=== PATIENT | male | born 1985 | race Caucasian/White ===

== ENCOUNTER 2018-04-20 18:16 | Emergency (ER) | payer OTHER ==
[~2018-04-20] VITALS: Ht 175.3 cm; Wt 87.1 kg
[2018-04-20 18:23] VITALS: BP 107/69
[2018-04-20] MEDS ORDERED: CLONIDINE HCL0.1 MG PO (18:24)
[2018-04-20] MEDS ORDERED: COREG3.125 MG ORAL (18:24)
[2018-04-20] MEDS ORDERED: FUROSEMIDE20 M1 ORAL (18:24)
--- NOTE | 2018-04-20 18:35 | Emergency Room Report ---
History of Present Illness General Chief Complaint: Pain Source: Patient Present Illness HPI Patient is a 33-year-old male presented after increased left lower extremity numbness. This is been present for approximately 3 days. Patient reports having prior history of congestive heart failure. He reports the has heart failure secondary to alcohol and drug abuse. Patient states his last echo he had an ejection fraction of approximate 15%. Patient reports being actively drinking at the time of that echocardiogram. He reports having increased numbness to his left lower extremity. He denies any increase in swelling. He reports taking multiple medications for his heart. Allergies: Coded Allergies: No Known Allergies (Unverified , 04/20/18) Patient History Past Medical History: see triage record Reviewed Nursing Documentation: PMH: Agreed; PSxH: Agreed Nursing Documentation-PMH Past Medical History: No Stated History Hx Hypertension: Yes Hx Asthma: Yes Review of Systems All Other Systems: negative except mentioned in HPI Physical Exam Vital Signs Date Time Temp Pulse Resp B/P (MAP) Pulse Ox O2 Delivery O2 Flow Rate FiO2 04/20/18 18:20 97.9 74 18 107/69 98 Room Air Sp02 EP Interpretation: reviewed, normal General Appearance: normal inspection, well appearing, no apparent distress, alert, GCS 15 Head: atraumatic ENT: normal ENT inspection, hearing grossly normal, normal voice Neck: normal inspection, full range of motion, supple, no bony tend Respiratory: normal inspection, lungs clear, normal breath sounds, no respiratory distress, no retraction, no wheezing Cardiovascular #1: regular rate, rhythm, no edema Gastrointestinal: normal inspection, normal bowel sounds, non tender, soft, no guarding, no hernia Genitourinary: no CVA tenderness Musculoskeletal: normal inspection, back normal, normal range of motion Neurologic: normal inspection, alert, oriented x3, responsive, sustainable development policy analyst III-XII nml as tested, motor strength/tone normal, DTRs symmetric, speech normal, sensory deficit, oriented Psychiatric: normal inspection, judgement/insight normal, mood/affect normal Skin: normal inspection, normal color, no rash Medical Decision Making Diagnostic Impression: Primary Impression: Neuropathy ER Course Patient presented for left lower extremity pain. Differential diagnosis included but was not limited to fracture, contusion, vascular insufficiency, aortic aneurysm, cellulitis.CT of the head read by radiology showed no acute intracranial hemorrhage or definite CVA. Patient was noted to have some what appeared to be artifact per radiology reading. Laboratory testing was unremarkable except for some slight elevation of his liver function test consistent with his prior history of hepatitis. Patient was noted to have normal oxygen saturation. He was noted to have multiple patches of areas of pain. He was advised to follow-up with neurology and advised that he may need MRI and to return if he began having worsening symptoms weakness fever or other concerns. Labs Test 04/20/18 19:00 White Blood Count 7.8 K/UL (4.8-10.8) Red Blood Count 4.91 M/UL (4.70-6.10) Hemoglobin 15.2 G/DL (14.2-18.0) Hematocrit 44.7 % (42.0-52.0) Mean Corpuscular Volume 91 FL (80-99) Mean Corpuscular Hemoglobin 31.0 PG (27.0-31.0) Mean Corpuscular Hemoglobin Concent 34.0 G/DL (32.0-36.0) Red Cell Distribution Width 11.3 % (11.6-14.8) Platelet Count 204 K/UL (150-450) Mean Platelet Volume 7.7 FL (6.5-10.1) Neutrophils (%) (Auto) 47.5 % (45.0-75.0) Lymphocytes (%) (Auto) 35.9 % (20.0-45.0) Monocytes (%) (Auto) 10.3 % (1.0-10.0) Eosinophils (%) (Auto) 4.7 % (0.0-3.0) Basophils (%) (Auto) 1.6 % (0.0-2.0) Sodium Level 137 MMOL/L (136-145) Potassium Level 4.4 MMOL/L (3.5-5.1) Chloride Level 101 MMOL/L (98-107) Carbon Dioxide Level 33 MMOL/L (21-32) Anion Gap 3 mmol/L (5-15) Blood Urea Nitrogen 14 mg/dL (7-18) Creatinine 1.1 MG/DL (0.55-1.30) Estimat Glomerular Filtration Rate > 60 mL/min (>60) Glucose Level 92 MG/DL (74-106) Calcium Level 9.2 MG/DL (8.5-10.1) Total Bilirubin 0.4 MG/DL (0.2-1.0) Aspartate Amino Transf (AST/SGOT) 49 U/L (15-37) Alanine Aminotransferase (ALT/SGPT) 97 U/L (12-78) Alkaline Phosphatase 87 U/L (46-116) Troponin I 0.000 ng/mL (0.000-0.056) Total Protein 7.6 G/DL (6.4-8.2) Albumin 3.6 G/DL (3.4-5.0) Globulin 4.0 g/dL Albumin/Globulin Ratio 0.9 (1.0-2.7) EKG Diagnostic Results Rate: normal Rhythm: NSR ST Segments: no acute changes Last Vital Signs Date Time Temp Pulse Resp B/P (MAP) Pulse Ox O2 Delivery O2 Flow Rate FiO2 04/20/18 18:20 97.9 74 18 107/69 98 Room Air Status: unchanged Disposition: HOME, SELF-CARE Edy Lord MD Apr 20, 2018 18:35
[2018-04-20 19:29] LABS: BASOPHILS % (AUTO) 1.6 % (0.0-2.0); EOSINOPHILS % (AUTO) 4.7 % (0.0-3.0); HEMATOCRIT 44.7 % (42.0-52.0); HEMOGLOBIN 15.2 G/DL (14.2-18.0); LYMPHOCYTES % (AUTO) 35.9 % (20.0-45.0); MEAN CORPUSCULAR VOLUME 91 FL (80-99); MONOCYTES % (AUTO) 10.3 % (1.0-10.0); NEUTROPHILS % (AUTO) 47.5 % (45.0-75.0); PLATELET COUNT 204 K/UL (150-450); RED BLOOD COUNT 4.91 M/UL (4.70-6.10); RED CELL DISTRIBUTION WIDTH 11.3 % (11.6-14.8); WHITE BLOOD COUNT 7.8 K/UL (4.8-10.8)
[2018-04-20 19:35] LABS: ANION GAP 3 mmol/L (5-15); BLOOD UREA NITROGEN 14 mg/dL (7-18); CALCIUM 9.2 MG/DL (8.5-10.1); CARBON DIOXIDE 33 MMOL/L (21-32); CHLORIDE 101 MMOL/L (98-107); CREATININE 1.1 MG/DL (0.55-1.30); POTASSIUM 4.4 MMOL/L (3.5-5.1); SODIUM 137 MMOL/L (136-145)
[2018-04-20 19:42] LABS: ALANINE AMINOTRANSFERASE 97 U/L (12-78); ALBUMIN 3.6 G/DL (3.4-5.0); ALBUMIN/GLOBULIN RATIO 0.9 (1.0-2.7); ALKALINE PHOSPHATASE 87 U/L (46-116); ASPARTATE AMINO TRANSFERASE 49 U/L (15-37); BILIRUBIN,TOTAL 0.4 MG/DL (0.2-1.0)
[2018-04-20 20:30] VITALS: BP 104/61
--- NOTE | 2018-04-21 10:53 | Diagnostic Imaging Report ---
Indication: Headache Technique: Contiguous 5 mm thick transaxial imaging of the head obtained in a Siemens Sensation [address] scanner. Soft tissue and bone windows generated. Automatic Exposure Control was utilized. Total Dose length Product (DLP): 1382.[address] Dose Index Volume (CTDIvol): 70.38 mGy Comparison: none Findings: The size and configuration of the cortical sulci, basal cisterns, and ventricles are within normal limits for age. There is no mass effect, midline shift, or edema identified. There is no evidence of acute hemorrhage or abnormal intra-axial or extra-axial fluid collections. The bones and soft tissues are unremarkable. Impression: No mass effect, edema or acute bleed. [facility] has communicated the preliminary results to the Emergency Department. Their findings are largely concordant with this report. The CT scanner at [facility] is accredited by the [employer] and the scans are performed using dose optimization techniques as appropriate to a performed exam including Automatic Exposure control.
== END 2018-04-20 20:30 | disposition home or self-care (01) ==
LOC: EMR 19:00
DX: G62.9 Polyneuropathy, unspecified (principal); J45.909 Unspecified asthma, uncomplicated; I10 Essential (primary) hypertension
CPT/HCPCS: 36415; 70450; 80053; 84484; 85025; 93005; 99284

== ENCOUNTER 2018-04-29 13:22 | Emergency (ER) | payer MEDICAID, OTHER ==
[~2018-04-29] VITALS: Ht 175.3 cm; Wt 90.7 kg
[~2018-04-29 13:22] MED LIST: CLONIDINE HCL0.1 MG PO; COREG3.125 MG ORAL; FUROSEMIDE20 M1 ORAL
[2018-04-29] MEDS ORDERED: SUBOXONE 8 MG-1 EACH SL (13:33)
[2018-04-29] MEDS ORDERED: POTASSIUM99 M3 PO (13:33)
[2018-04-29] MEDS ORDERED: ENTRESTO 24 MG1 EACH PO (13:33)
[2018-04-29] MEDS ORDERED: FUROSEMIDE20 M1 ORAL (13:33)
--- NOTE | 2018-04-29 13:54 | Emergency Room Report ---
History of Present Illness General Chief Complaint: Substance Abuse Source: Patient (Reggie Perdomo) Present Illness HPI 33 yo male patient presents the ER complaining of vomiting and diarrhea status post a few hours following receiving a naltrexone implant earlier today. Patient reports that he received a implant for opioid addiction. Reports has been clean for over 1 month. Reports vomiting and diarrhea, denies blood in vomit or stool. Denies recent travel. Patient being seen in the ER with contact with similar symptoms who also received an implant earlier today. Denies fever, chest pain, shortness of breath. Vitals stable. Denies recent drug use. (Reggie Perdomo) Allergies: Coded Allergies: No Known Allergies (Unverified , 04/29/18) Patient History Past Medical History: see triage record Reviewed Nursing Documentation: PMH: Agreed; PSxH: Agreed (Reggie Perdomo) Nursing Documentation-PMH Past Medical History: No History, Except For Hx Cardiac Problems: Yes - CHF Hx Hypertension: Yes Hx Asthma: Yes (Reggie Perdomo) Review of Systems All Other Systems: negative except mentioned in HPI (Reggie Perdomo) Physical Exam Vital Signs Date Time Temp Pulse Resp B/P (MAP) Pulse Ox O2 Delivery O2 Flow Rate FiO2 04/29/18 13:29 97.5 88 18 129/84 98 Room Air Sp02 EP Interpretation: reviewed, normal General Appearance: well appearing, no apparent distress, alert, GCS 15, non- toxic Head: normocephalic, atraumatic Eyes: bilateral eye normal inspection, bilateral eye PERRL ENT: hearing grossly normal, normal pharynx, no angioedema, normal voice, uvula midline, moist mucus membranes Neck: full range of motion Respiratory: lungs clear, normal breath sounds, no rhonchi, no respiratory distress, no accessory muscle use, no wheezing, speaking full sentences Cardiovascular #1: regular rate, rhythm, no edema Gastrointestinal: non tender, soft, no mass, non-distended, no guarding, no rebound, other - small <1cm on left lateral abdomen , no surrounding erythema or edema Musculoskeletal: back normal, digits/nails normal, gait/station normal, normal range of motion, non-tender Neurologic: alert, oriented x3, responsive, motor strength/tone normal, sensory intact Psychiatric: mood/affect normal (Reggie Perdomo) Medical Decision Making PA Attestation Dr. Dumont is my supervising Physician whom patient management has been discussed with. (Reggie Perdomo) Medicare Attestation Please note that the patient was also seen by myself Patient remains hemodynamically stable I do agree with the exam and workup and intervention Patient was observed checking into the emergency room, appropriate no signs of any nausea or vomiting, patient is appropriate for outpatient care (Sj Dumont DO) Diagnostic Impression: Primary Impression: Nausea & vomiting ER Course Pt. presents to the ED c/o vomiting and diarrhea s/p naltrexone implant earlier today. Ddx considered but are not limited to gastritis, enteritis, withdrawal, opioid dependence. Vital signs: are WNL, pt. is afebrile ER COURSE: Provided with Zofran. Patient not observed to vomit while in the ER. Physical exam benign, no abdominal TTP. Patient seen and evaluated by Dr. Dumont, do not believe patient requires further treatment or workup at this time. Will provide Rx for Zofran and recommend patient followup with clinic where procedure was performed. Vtials stable, observed walking around without difficulty. Informed by nurse patient requesting pain medication following discharge. DISCHARGE: At this time pt is stable for d/c to home. Patient is resting comfortably, in no acute distress, nontoxic appearing, talking without difficulty. Patient to take medications as instructed Will provide with patient care instructions and any necessary prescriptions. Care plan and follow-up instructions provided. Patient instructed to follow-up with primary care provider in 3 - 5 days. Patient questions asked and answered. Patient reports understanding and agreement to treatment plan. ER precautions given. Patient instructed to return to ER immediately for any new or worsening of symptoms including but not limited to increasing SOB, persistent fever, chest pain, intractable vomiting. - Please note that this Emergency Department Report was dictated using [employer]demur[employer] agent technology software, occasionally this can lead to erroneous entry secondary to interpretation by the dictation equipment. (Reggie Perdomo) Last Vital Signs Date Time Temp Pulse Resp B/P (MAP) Pulse Ox O2 Delivery O2 Flow Rate FiO2 04/29/18 13:29 97.5 88 18 129/84 98 Room Air (Reggie Perdomo) Disposition: HOME, SELF-CARE Condition: Stable Scripts Ondansetron* (ZOFRAN*) 4 Mg Tablet 4 MG ORAL Q6H PRN for Nausea & Vomiting, #4 TAB Prov: Reggie Perdomo 04/29/18 Patient Instructions: Diarrhea, Adult, [id number], Nausea and Vomiting, Adult , [id number], Opioid Withdrawal Additional Instructions: Follow-up with clinic where procedure was performed immediately. Followup with primary care provider in 3 -5 days. Take medications as directed. Patient questions asked and answered. ER precautions given, patient instructed to return to ER immediately for any new or worsening of symptoms. Reggie Perdomo Apr 29, 2018 13:54 Sj Dumont DO Apr 29, 2018 14:13
[2018-04-29] MEDS ORDERED: ZOFRAN4 M3 ORAL (13:58)
[2018-04-29 14:13] VITALS: BP 110/78
--- NOTE | 2018-04-29 14:16 | NUR ---
ED Nurse Note: Pt came in w/ complaints of abdominal pain, nausea, vomiting, diarrhea since this morning s/p naltrexone implant to the left hip. A + O x4. Ambulatory. Skin warm to touch. Incision site clean and intact. Open to air. Complaiing of 10/10 abdominal pain.
--- NOTE | 2018-04-29 14:17 | NUR ---
ED Nurse Note: Discharge instructions given to pt. Answered all questions. Verbalized understanding. No acute distress noted. ID band removed. Left ER w/ steady gait and all belongings.
== END 2018-04-29 14:17 | disposition home or self-care (01) ==
LOC: EMR 13:57
DX: R11.2 Nausea with vomiting, unspecified (principal); R19.7 Diarrhea, unspecified; F11.10 Opioid abuse, uncomplicated
CPT/HCPCS: 99282

== ENCOUNTER 2018-05-04 11:58 | Emergency (ER) | payer MEDICAID ==
[~2018-05-04] VITALS: Ht 175.3 cm; Wt 81.6 kg
[~2018-05-04 11:58] MED LIST changes: +ENTRESTO 24 MG1 EACH PO; +POTASSIUM99 M3 PO; +SUBOXONE 8 MG-1 EACH SL; +ZOFRAN4 M3 ORAL
[2018-05-04 12:29] VITALS: BP 110/76
--- NOTE | 2018-05-04 12:29 | NUR ---
ED Nurse Note: PT WALKED IN TO ER TODAY FROM HOME. AOX4. PT HERE FOR MEDICAL CLEARANCE IN ORDER TO GET ADMITTED INTO [facility] FOR ALCOHOL, HEROIN, AND METH.
[2018-05-04 13:10] LABS: APPEARANCE,URINE CLEAR; BILIRUBIN, URINE NEGATIVE (NEGATIVE); COLOR,URINE PALE YELLOW; GLUCOSE, URINE (UA) NEGATIVE (NEGATIVE); KETONES,URINE NEGATIVE (NEGATIVE); LEUKOCYTE ESTERASE ,URINE 1+ (NEGATIVE); NITRITE,URINE NEGATIVE (NEGATIVE); PH,URINE 5 (4.5-8.0); PROTEIN,URINE NEGATIVE (NEGATIVE); UROBILINOGEN,URINE NORMAL MG/DL (0.0-1.0)
--- NOTE | 2018-05-04 13:29 | NUR ---
ED Nurse Note: PT REFUSED BLOOD DRAW.
--- NOTE | 2018-05-04 13:30 | Emergency Room Report ---
History of Present Illness General Chief Complaint: General Complaint Source: Patient Present Illness HPI 33-year-old male with history of unknown drug use here with his girlfriend for urine toxicology screen to prove that he has been clean for going back to [facility]. She denies any recent use of alcohol, tobacco smoke, and any other illicit drugs. The patient was just here 1 week ago and was tested negative for alcohol. Patient does not want to be tested again for alcohol as he claims that last time he took 3 nurses to feel flushed and he does not want to be poked again denies chest pain she was moderately hemolyzed, no other associated symptoms. Patient discharged once immediately exactly is going through withdrawal symptoms and everything is negative according to today even though he is refusing to do blood alcohol level today. Allergies: Coded Allergies: No Known Allergies (Unverified , 04/29/18) Patient History Past Medical History: see triage record Past Surgical History: none Pertinent Family History: unable to obtain Social History: Reports: drug use - unknown Reviewed Nursing Documentation: PMH: Agreed; PSxH: Agreed Nursing Documentation-PMH Past Medical History: No History, Except For Hx Cardiac Problems: Yes - CHF Hx Hypertension: Yes Hx Asthma: Yes Review of Systems All Other Systems: negative except mentioned in HPI Physical Exam Vital Signs Date Time Temp Pulse Resp B/P (MAP) Pulse Ox O2 Delivery O2 Flow Rate FiO2 05/04/18 12:19 97.9 91 18 104/72 99 Room Air Sp02 EP Interpretation: reviewed, normal General Appearance: normal inspection, well appearing, alert Head: normocephalic Eyes: bilateral eye normal inspection, bilateral eye PERRL ENT: normal ENT inspection, normal pharynx Neck: normal inspection, full range of motion Respiratory: normal inspection, no rhonchi Cardiovascular #1: normal inspection, regular rate, rhythm Gastrointestinal: normal inspection, soft Musculoskeletal: normal inspection Neurologic: normal inspection, alert, oriented x3 Psychiatric: normal inspection, judgement/insight normal, memory normal, mood/ affect normal, no suicidal/homicidal ideation Skin: normal inspection, well hydrated Lymphatic: normal inspection Medical Decision Making PA Attestation all diagnosis and treatment plans are reviewed and discussed with my supervising physician Dr. Crews Diagnostic Impression: Primary Impression: Encounter for drug screening ER Course 33-year-old male with history of unknown drug use here with his girlfriend for urine toxicology screen to prove that he has been clean for going back to [facility]. She denies any recent use of alcohol, tobacco smoke, and any other illicit drugs. The patient was just here 1 week ago and was tested negative for alcohol. Patient does not want to be tested again for alcohol as he claims that last time he took 3 nurses to feel flushed and he does not want to be poked again denies chest pain she was moderately hemolyzed, no other associated symptoms. Patient discharged once immediately exactly is going through withdrawal symptoms and everything is negative according to today even though he is refusing to do blood alcohol level today. Ddx considered but are not limited to drug screen, negative drug screen, positive drug screen Vital signs: are WNL, pt. is afebrile H&PE are most consistent with negative drug screen ORDERS:urine toxicology, UA, blood ETOH(refused to do), pt infromed taht we do not test for naltraxone levels ED INTERVENTIONS: None required at this time. DISCHARGE: At this time pt. is stable for d/c to home. Will provide printed patient care instructions, and any necessary prescriptions. Care plan and follow up instructions have been discussed with the patient prior to discharge. can not falsify results and documents and saying no withdrawal as pt eliu tested negative for urine tox. cant mention that today's ETOH levels are negative as pt refused blood draw. last week lab results and todays results were given to pt Last Vital Signs Date Time Temp Pulse Resp B/P (MAP) Pulse Ox O2 Delivery O2 Flow Rate FiO2 05/04/18 12:29 98.2 86 18 110/76 99 Room Air Disposition: HOME, SELF-CARE Condition: Stable Additional Instructions: patient is negative for amphetamines, cocaine, barbiturates, benzodiazepines patient declines to do blood alcohol level patient's alcohol level from last week is negative however refused to do them today. Keshav Miranda May 04, 2018 13:30
[2018-05-04 13:37] VITALS: BP 112/80
--- NOTE | 2018-05-04 13:37 | NUR ---
ED Nurse Note: PT SITTING PEACEFULLY IN CHAIR IN NAD. AOX4. DISCHARGE PAPERWORK EXPLAINED TO PT. PT VERBALIZES UNDERSTANDING AND ALL QUESTIONS ANSWERED. DISCHARGE PAPERWORK GIVEN TO PT AND ID WRISTBAND REMOVED. PT WALKED OUT OF ER WITH STEADY GAIT AND ALL BELONGINGS.
== END 2018-05-04 13:37 | disposition home or self-care (01) ==
LOC: EMR 12:56
DX: Z02.83 Encounter for blood-alcohol and blood-drug test (principal); I11.0 Hypertensive heart disease with heart failure; I50.9 Heart failure, unspecified
CPT/HCPCS: 80307; 81001; 99283